=== PATIENT | male | born 1975 | race Two or more races ===

== ENCOUNTER 2019-11-27 14:10 | Emergency (ER) | payer OTHER ==
[~2019-11-27] VITALS: Ht 172.7 cm; Wt 91.6 kg
[2019-11-27 14:18] VITALS: BP 148/87
[2019-11-27] MEDS ORDERED: TDAP [DIPH/PERTUSSIS/TET] 0.5 ML VIAL IM ONE ×2 (14:30→15:12)
[2019-11-27] MEDS ORDERED: LIDOCAINE 1%-EPI 1:100,000 20 ML VIAL TP ONE (14:30)
[2019-11-27] MEDS ORDERED: LIDOCAINE 1%-EPI 1:100,000 20 ML VIAL ONE (14:33)
--- NOTE | 2019-11-27 16:06 | NUR ---
Patient discharged to home in stable condition. Written and verbal after care instructions given. Patient verbalizes understanding of instruction. Pt ambulatory with a steady gait
== END 2019-11-27 16:07 | disposition home or self-care (01) ==
LOC: ER 14:15
DX: S01.511A Laceration without foreign body of lip, initial encounter (principal); W22.8XXA Striking against or struck by other objects, initial encounter; Y93.89 Activity, other specified; Y92.89 Other specified places as the place of occurrence of the external cause; Y99.8 Other external cause status
CPT/HCPCS: 12011; 90471; 90715; 99283; J3490

== ENCOUNTER 2019-12-06 19:51 | Emergency (ER) | payer OTHER ==
[~2019-12-06] VITALS: Ht 172.7 cm; Wt 90.7 kg
[2019-12-06 19:57] VITALS: BP 148/84
--- NOTE | 2019-12-06 20:03 | NUR ---
SKIN IS INTACT. NO REDNESS OR SWELLING NOTED.
--- NOTE | 2019-12-06 20:03 | NUR ---
GRETCHEN ZIMMERMAN AT BEDSIDE.
--- NOTE | 2019-12-06 20:04 | NUR ---
Patient discharged to home in stable condition. Written and verbal after care instructions given. Patient verbalizes understanding of instruction.
== END 2019-12-06 20:07 | disposition home or self-care (01) ==
LOC: ER 19:53
DX: S01.511D Laceration without foreign body of lip, subsequent encounter (principal); W22.8XXD Striking against or struck by other objects, subsequent encounter

== ENCOUNTER 2024-06-18 07:38 | Emergency (ER) | payer OTHER ==
[~2024-06-18] VITALS: Ht 167.6 cm; Wt 90.7 kg
[2024-06-18] MEDS ORDERED: METOCLOPRAMIDE HCL 10 MG/2 ML VIAL ONE (08:09)
[2024-06-18] MEDS ORDERED: KETOROLAC TROMETHAMINE 15 MG/ML VIAL ONE (08:09)
[2024-06-18] MEDS: KETOROLAC TROMETHAMINE 15 MG/ML VIAL IV ONE (08:20)
[2024-06-18] MEDS: METOCLOPRAMIDE HCL 10 MG/2 ML VIAL IV ONE (08:20)
[2024-06-18 08:21] LABS: BASOPHILS % (AUTO) 0.2 % (0.0-2.0); EOSINOPHILS % (AUTO) 0.2 % (0.0-6.0); HEMATOCRIT 41 % (39-51); HEMOGLOBIN 13.9 g/dL (13.5-17.5); LYMPHOCYTES # (AUTO) 1.4 K/uL (0.8-4.8); LYMPHOCYTES % (AUTO) 7.8 % (20.0-44.0); MEAN CORPUSCULAR HEMOGLOBIN 30 PG (26.0-33.0); MEAN CORPUSCULAR HGB CONC 34 g/dl (31.0-36.0); MEAN CORPUSCULAR VOLUME 86 fL (80-96); MONOCYTES # (AUTO) 0.5 K/uL (0.1-1.30); NEUTROPHILS # (AUTO) 15.7 K/uL (1.8-8.9); NEUTROPHILS % (AUTO) 88.8 % (43.0-81.0); PLATELET COUNT (AUTO) 221 K/uL (150-450); RED CELL DISTRIBUTION WIDTH 13.6 % (11.5-15.0); WHITE BLOOD COUNT (AUTO) 17.7 K/uL (4.3-11.0)
[2024-06-18] MEDS ORDERED: MORPHINE SULFATE INJ 4 MG/ML DISP.SYRIN ONE (08:27)
[2024-06-18] MEDS: IV NS 0.9% 1,000 ML BAG IV ONE (08:36)
[2024-06-18] MEDS: MORPHINE SULFATE INJ 2 MG/ML DISP.SYRIN IV ONE (08:37)
[2024-06-18 08:44] LABS: INR 0.99 (0.91-1.10); PROTHROMBIN TIME 10.5 SECS (9.2-11.1)
[2024-06-18 08:57] LABS: CALCIUM, SERUM 9.5 mg/dL (8.5-10.1); CREATININE 1.3 mg/dL (0.6-1.3)
[2024-06-18 09:05] LABS: ALBUMIN 4.4 g/dL (3.4-5.0); BILIRUBIN,DIRECT 0.1 mg/dL (0.0-0.2); BILIRUBIN,TOTAL 0.1 mg/dL (0.2-1.0); TOTAL PROTEIN, SERUM 7.7 g/dL (6.4-8.2)
[2024-06-18] MEDS ORDERED: IOHEXOL-300 100 ML VIAL IV ONE (09:13)
[2024-06-18] MEDS ORDERED: IV NS 0.9% 250 ML IV ONE (09:13)
[2024-06-18] MEDS ORDERED: CT SWABBABLE VALVE TRANS SET 1 EA INFUS.SET MC ONE (09:14)
[2024-06-18] MEDS ORDERED: FAMO20TA80 PO (11:38)
[2024-06-18] MEDS ORDERED: DICY10CA37 PO (11:38)
[2024-06-18] MEDS ORDERED: ONDA4TAB5 PO (11:38)
[2024-06-18] MEDS: DICYCLOMINE HCL 10 MG CAPSULE PO ONE (11:59)
[2024-06-18 12:36] VITALS: BP 150/89; TEMP 98.8; O2SAT 98
== END 2024-06-18 12:37 | disposition home or self-care (01) ==
LOC: ER 07:42
DX: K52.9 Noninfective gastroenteritis and colitis, unspecified (principal); K80.50 Calculus of bile duct without cholangitis or cholecystitis without obstruction; I10 Essential (primary) hypertension; F17.200 Nicotine dependence, unspecified, uncomplicated
CPT/HCPCS: 99285; 74177; 96374; 76705; 96375; 96361; 85025; 80048; 83690; 80076; 36415; 85730; J2270; J2765; J7030; J7050; Q9967; J1885